=== PATIENT | female | born 1950 | race Caucasian/White ===

== ENCOUNTER → 2017-01-12 | Outpatient (CLI) | payer MEDICARE, BC ==
[~2017-01-12] MED LIST: ABILIFY; ASPIRIN 32325 MG/TAB PO; B-121000 MCG PO; CALCIUM CARBON650 M2 PO; CELEXA 20MG20 MG/TAB PO; CLOPIDOGREL PO; COLACE 100100 MG/CAP PO; CYMBALTA 60MG60 MG PO; GABAPENTIN300 M1 PO; K-DUR 2020 MEQ PO; KLONOPIN 0.5MG0.5 MG PO; LASIX 20MG TABL20 MG PO; LASIX 40MG TABL40 MG PO; LEXAPRO 10MG10 MG PO; LIPITOR 80MG80 MG PO; LISINOPRIL10 MG PO; MACRODANTIN PO; MACRODANTIN50 MG PO; MICRO-K 1010 MEQ PO; MYRBETR50MG PO; NEURONTIN300 MG/CAP PO; NICODERM C14 MG/PATC TOP; NITROQUICK0.4 MG SL; NORFLEX 10100 MG/TAB PO; NORVASC 10MG10 MG PO; PAMELOR 10MG10 MG PO; PLAVIX 75MG TAB75 MG PO; PRIL40 PO; PRILOSEC 20MG20 MG PO; PROTONIX 40MG T40 MG PO; SYNTHROID0.05 MG/TA PO; SYNTHROID0.075 MG/T PO; TYLENOL EXTRA500 M1 PO; VALIUM 5MG T5 MG/TAB PO; VITAMIN D32000 IU PO; VOLTAREN GEL 1%1 TU TP; XANAX 1MG1 MG PO; XANAX0.5 MG PO; ZOCOR80 MG PO
== END ==
LOC: MC.RAD 12:58
DX: Z12.31 Encounter for screening mammogram for malignant neoplasm of breast (principal)

== ENCOUNTER 2017-02-23 14:15 | Outpatient (RCR) | payer MEDICARE, BC ==
[~2017-02-23 14:15] MED LIST changes: -B-121000 MCG PO; -CALCIUM CARBON650 M2 PO; -KLONOPIN 0.5MG0.5 MG PO; -MYRBETR50MG PO; -NEURONTIN300 MG/CAP PO; -NORVASC 10MG10 MG PO; -PAMELOR 10MG10 MG PO; -PROTONIX 40MG T40 MG PO; -VITAMIN D32000 IU PO; -VOLTAREN GEL 1%1 TU TP
[2017-04-12] MEDS ORDERED: VOLTAREN GEL 1%1 TU TP (16:10)
[2017-04-12] MEDS ORDERED: PAMELOR 10MG10 MG PO (16:11)
[2017-04-12] MEDS ORDERED: B-121000 MCG PO (16:12)
[2017-04-12] MEDS ORDERED: PROTONIX 40MG T40 MG PO (16:12)
[2017-04-12] MEDS ORDERED: LASIX 40MG TABL40 MG PO (16:14)
[2017-04-12] MEDS ORDERED: NORVASC 10MG10 MG PO (16:15)
[2017-04-12] MEDS ORDERED: VITAMIN D32000 IU PO (16:17)
[2017-04-12] MEDS ORDERED: KLONOPIN 0.5MG0.5 MG PO (16:17)
[2017-04-12] MEDS ORDERED: CALCIUM CARBON650 M2 PO (16:18)
[2017-04-12] MEDS ORDERED: MYRBETR50MG PO (16:18)
[2017-04-12] MEDS ORDERED: CYMBALTA 60MG60 MG PO (16:19)
[2017-04-12] MEDS ORDERED: NEURONTIN300 MG/CAP PO (16:19)
== END 2017-02-28 13:03 | disposition home or self-care (01) ==
LOC: WSPT 14:15
DX: M47.892 Other spondylosis, cervical region (principal); M75.22 Bicipital tendinitis, left shoulder; M75.21 Bicipital tendinitis, right shoulder
CPT/HCPCS: G8981-GP; G8982-GP

== ENCOUNTER 2017-04-27 14:00 | Outpatient (RCR) | payer MEDICARE, BC ==
[2017-04-17 15:19] VITALS: BP 112/59; PULSE 59; TEMP 98.6
[2017-04-21 16:02] VITALS: BP 148/73; PULSE 65; TEMP 98.7
[~2017-04-27] VITALS: Ht 175.3 cm; Wt 113.6 kg
[~2017-04-27 14:00] MED LIST changes: +B-121000 MCG PO; +CALCIUM CARBON650 M2 PO; +KLONOPIN 0.5MG0.5 MG PO; +MYRBETR50MG PO; +NEURONTIN300 MG/CAP PO; +NORVASC 10MG10 MG PO; +PAMELOR 10MG10 MG PO; +PROTONIX 40MG T40 MG PO; +VITAMIN D32000 IU PO; +VOLTAREN GEL 1%1 TU TP
[2017-04-27 16:25] VITALS: BP 126/69; PULSE 66; TEMP 98.7
== END 2017-04-27 18:00 | disposition home or self-care (01) ==
LOC: EUO 14:00
DX: E61.1 Iron deficiency (principal); Z79.899 Other long term (current) drug therapy
CPT/HCPCS: J2916

== ENCOUNTER 2017-07-10 14:45 | Outpatient (RCR) | payer MEDICARE | END 2017-07-13 08:56 | LOC: WSPT 14:45 | DX: M79.604 Pain in right leg (principal); M25.551 Pain in right hip | CPT/HCPCS: G0283-GP; G8978-GP; G8979-GP; G8980-GP ==

== ENCOUNTER → 2017-07-20 | Outpatient (CLI) | payer MEDICARE, BC | LOC: COL.RAD 11:55 | DX: D32.0 Benign neoplasm of cerebral meninges (principal); H57.11 Ocular pain, right eye; R41.89 Other symptoms and signs involving cognitive functions and awareness; M47.812 Spondylosis without myelopathy or radiculopathy, cervical region; M48.02 Spinal stenosis, cervical region; M50.30 Other cervical disc degeneration, unspecified cervical region | CPT/HCPCS: A9585 ==

== ENCOUNTER → 2018-02-20 | Outpatient (CLI) | payer MEDICARE, BC | LOC: COL.VAS 08:55 | DX: I65.23 Occlusion and stenosis of bilateral carotid arteries (principal) ==

== ENCOUNTER → 2018-04-10 | Outpatient (CLI) | payer MEDICARE, BC | LOC: COL.RAD 08:18 | DX: I65.22 Occlusion and stenosis of left carotid artery (principal); I65.21 Occlusion and stenosis of right carotid artery; D32.0 Benign neoplasm of cerebral meninges | CPT/HCPCS: Q9967 ==

== ENCOUNTER → 2018-04-19 | Outpatient (CLI) | payer MEDICARE, BC ==
[~2018-04-19] VITALS: Ht 175.4 cm; Wt 117.3 kg
[~2018-04-19] MED LIST changes: +COZAAR 50MG50 MG/TAB PO; +IRON TABLETS325 MG PO; +K-DUR20 MEQ PO; +LAMICTAL 25MG T25 MG PO; +LEXAPRO20 MG PO; +TYLENOL 500MG500 MG PO; +ZANAFLEX 4MG TAB4 MG PO; +ZETIA 10MG TAB10 MG PO
[2018-04-19 06:12] VITALS: BP 154/72; PULSE 64
[2018-04-19 07:06] VITALS: BP 136/64; PULSE 54
[2018-04-19 07:08] VITALS: BP 157/71; PULSE 73
[2018-04-19 07:09] VITALS: BP 153/62; PULSE 71
[2018-04-19 07:10] VITALS: BP 154/75; PULSE 70
== END ==
LOC: COL.CARD 05:38
DX: I25.10 Atherosclerotic heart disease of native coronary artery without angina pectoris (principal); I10 Essential (primary) hypertension; E78.5 Hyperlipidemia, unspecified; F17.200 Nicotine dependence, unspecified, uncomplicated; K21.9 Gastro-esophageal reflux disease without esophagitis; I77.9 Disorder of arteries and arterioles, unspecified
CPT/HCPCS: A9502; J2785

== ENCOUNTER → 2018-07-11 | Outpatient (CLI) | payer MEDICARE, BC | LOC: COL.RAD 07-09 11:00 | DX: R13.10 Dysphagia, unspecified (principal) ==

== ENCOUNTER → 2018-07-31 | Outpatient (CLI) | payer MEDICARE, BC | LOC: COL.VAS 08:50 | DX: I65.22 Occlusion and stenosis of left carotid artery (principal); Z98.890 Other specified postprocedural states ==

== ENCOUNTER → 2018-11-01 | Outpatient (CLI) | payer MEDICARE, BC | LOC: COL.RAD 17:16 | DX: K57.30 Diverticulosis of large intestine without perforation or abscess without bleeding (principal); I70.0 Atherosclerosis of aorta; Z90.710 Acquired absence of both cervix and uterus | CPT/HCPCS: Q9967 ==

== ENCOUNTER → 2018-11-09 | Outpatient (CLI) | payer MEDICARE, BC | LOC: COL.RAD 06:48 | DX: R10.9 Unspecified abdominal pain (principal) | CPT/HCPCS: A9537; J2270 ==

== ENCOUNTER → 2019-01-14 | Outpatient (CLI) | payer MEDICARE, BC | LOC: MC.RAD 08:56 | DX: Z12.31 Encounter for screening mammogram for malignant neoplasm of breast (principal) ==

== ENCOUNTER → 2019-07-25 | Outpatient (CLI) | payer MEDICARE, BC ==
[~2019-07-25] MED LIST changes: +IRON 27 MG PO; +MASON NATURAL2000 IU; +NORCO 325 MG-51 TAB PO; +SYNTHROID0.1 MG/TAB PO
[2019-07-25 15:40] VITALS: BP 133/68; PULSE 96; TEMP 98.6
[2019-07-25 16:30] VITALS: BP 128/73; PULSE 83
[2019-07-25 16:45] VITALS: BP 123/74; PULSE 81
[2019-07-25 17:00] VITALS: BP 127/68; PULSE 85
[2019-07-25 17:15] VITALS: BP 124/81; PULSE 82
[2019-07-25 17:30] VITALS: BP 140/74; PULSE 82
== END ==
LOC: EUO 14:30
DX: D50.8 Other iron deficiency anemias (principal)
CPT/HCPCS: J2916

== ENCOUNTER 2019-12-27 13:00 | Outpatient (RCR) | payer MEDICARE | END 2020-01-23 | disposition home or self-care (01) | LOC: WSPT | DX: M51.36 Other intervertebral disc degeneration, lumbar region (principal) ==

== ENCOUNTER → 2020-03-20 | Outpatient (CLI) | payer MEDICARE, BC | LOC: MC.RAD 12:42 | DX: Z12.31 Encounter for screening mammogram for malignant neoplasm of breast (principal) ==

== ENCOUNTER 2020-04-13 11:00 | Outpatient (RCR) | payer MEDICARE, BC | END 2020-07-12 | disposition home or self-care (01) | LOC: WSPT | DX: R29.898 Other symptoms and signs involving the musculoskeletal system (principal); R53.1 Weakness ==

== ENCOUNTER → 2020-07-24 | Outpatient (CLI) | payer MEDICARE, BC ==
[2020-07-30 13:59] LABS: A/G RATIO (IEP) 1.03 (()); ALBUMIN (IEP) 3.4 g/dL (3.4-4.7); ALPHA 1 GLOBULINS (IEP) 0.2 g/dL (0.1-0.3); ALPHA 2 GLOBULINS (IEP) 0.9 g/dL (0.6-1.0); BETA GLOBULINS (IEP) 1.2 g/dL (0.7-1.2)
[2020-08-06 14:27] LABS: M SPIKE 1 (IEP) SEE PCI; M SPIKE 2 (IEP) SEE PCI; TOTAL PROTEIN (IEP) SEE PCI
== END ==
LOC: COL.LAB 12:17
DX: M79.7 Fibromyalgia (principal)

== ENCOUNTER → 2021-02-19 | Outpatient (CLI) | payer MEDICARE, BC ==
[2021-02-19 12:44] LABS: FASTING GLUCOSE 107 mg/dL (70-110)
[2021-02-19 13:43] LABS: 1/2 HR GLUCOSE 157 mg/dL (100-170)
[2021-02-19 14:55] LABS: 1 HR GLUCOSE 166 mg/dL (90-160)
== END ==
LOC: COL.LAB 11:19
DX: G62.9 Polyneuropathy, unspecified (principal)

== ENCOUNTER → 2021-03-23 | Outpatient (CLI) | payer MEDICARE, BC | LOC: COL.RAD 11:15 | DX: K41.90 Unilateral femoral hernia, without obstruction or gangrene, not specified as recurrent (principal); Z90.710 Acquired absence of both cervix and uterus | CPT/HCPCS: Q9967 ==

== ENCOUNTER → 2021-03-31 | Outpatient (CLI) | payer MEDICARE, BC | LOC: COL.RAD 03-25 13:30 | DX: Z12.2 Encounter for screening for malignant neoplasm of respiratory organs (principal); F17.218 Nicotine dependence, cigarettes, with other nicotine-induced disorders ==

== ENCOUNTER → 2021-04-19 | Outpatient (CLI) | payer MEDICARE, BC | LOC: MC.RAD 14:21 | DX: Z12.31 Encounter for screening mammogram for malignant neoplasm of breast (principal); N64.89 Other specified disorders of breast ==

== ENCOUNTER → 2021-04-22 | Outpatient (CLI) | payer MEDICARE, BC | LOC: MC.RAD 11:00 | DX: N64.89 Other specified disorders of breast (principal) ==

== ENCOUNTER 2021-07-21 12:55 | Outpatient (RCR) | payer MEDICARE, BC | END 2021-10-19 | disposition home or self-care (01) | LOC: WSST | DX: R13.12 Dysphagia, oropharyngeal phase (principal) ==

== ENCOUNTER 2021-07-21 16:00 | Outpatient (RCR) | payer MEDICARE, BC ==
[2021-07-13 15:43] VITALS: BP 137/81; PULSE 93; TEMP 98.8
[2021-07-15 16:26] VITALS: BP 138/83; PULSE 84; TEMP 98.7
[2021-07-19 16:17] VITALS: BP 130/89; PULSE 96; TEMP 99
[~2021-07-21] VITALS: Ht 175.3 cm; Wt 117.1 kg
[2021-07-21 16:00] VITALS: BP 144/65; PULSE 76; TEMP 98.1
== END 2021-07-21 16:53 | disposition home or self-care (01) ==
LOC: EUO 16:00
DX: D50.9 Iron deficiency anemia, unspecified (principal)
CPT/HCPCS: J1756

== ENCOUNTER → 2021-08-17 | Outpatient (CLI) | payer MEDICARE, BC | LOC: COL.RAD 13:28 | DX: R13.12 Dysphagia, oropharyngeal phase (principal) ==

== ENCOUNTER → 2022-01-31 | Outpatient (CLI) | payer MEDICARE, BC | LOC: MC.RAD 10:51 | DX: N64.59 Other signs and symptoms in breast (principal); R92.8 Other abnormal and inconclusive findings on diagnostic imaging of breast ==

== ENCOUNTER → 2022-04-13 | Outpatient (CLI) | payer MEDICARE, BC | LOC: COL.RAD 13:55 | DX: Z12.2 Encounter for screening for malignant neoplasm of respiratory organs (principal); F17.200 Nicotine dependence, unspecified, uncomplicated ==

== ENCOUNTER → 2022-05-05 | Outpatient (CLI) | payer MEDICARE, BC | LOC: MC.RAD 09:59 | DX: N64.89 Other specified disorders of breast (principal) ==

== ENCOUNTER → 2022-09-02 | Outpatient (CLI) | payer MEDICARE, BC | LOC: COL.RAD 16:18 | DX: M17.0 Bilateral primary osteoarthritis of knee (principal) ==

== ENCOUNTER → 2022-11-18 | Outpatient (CLI) | payer MEDICARE, BC ==
[~2022-11-18] MED LIST changes: +CALCIUM 600600 MG PO; -IRON 27 MG PO; +LYRICA 50MG CAP50 MG PO; +NATURAL IRON65 MG PO; +NEXIUM 40MG40 MG PO; +TOPAMAX 25MG25 M1 PO; +XALATAN EYE DROPS OU
== END ==
LOC: COL.RAD 12:00
DX: T18.9XXA Foreign body of alimentary tract, part unspecified, initial encounter (principal)

== ENCOUNTER → 2023-07-27 | Outpatient (CLI) | payer MEDICARE, BC ==
[~2023-07-27] MED LIST changes: +ATACAND32 MG PO; +CARDIZEM CD 12120 MG PO; +ELIQUIS 5MG PO; +LASIX 80MG TABL80 MG PO; +MASON NATURAL2000 IU PO; +REQUIP2 MG PO; +SYSTANE 0.4%-0.1 SOL OU; +TAMBOCOR 1100 MG/TAB PO
== END ==
LOC: CANPRECLI → COL.RAD 03-29 07:30
DX: Z12.2 Encounter for screening for malignant neoplasm of respiratory organs (principal); F17.218 Nicotine dependence, cigarettes, with other nicotine-induced disorders

== ENCOUNTER 2023-11-20 09:00 | Outpatient (RCR) | payer MEDICARE, BC | END 2023-11-28 15:24 | disposition home or self-care (01) | LOC: WSST 09:00 | DX: R48.8 Other symbolic dysfunctions (principal); R41.3 Other amnesia; R41.0 Disorientation, unspecified ==

== ENCOUNTER 2023-11-28 15:05 | Outpatient (RCR) | payer MEDICARE, BC | END 2023-12-21 | disposition home or self-care (01) | LOC: WSST | DX: R43.9 Unspecified disturbances of smell and taste (principal); R41.3 Other amnesia ==

== ENCOUNTER 2023-12-18 14:15 | Outpatient (RCR) | payer MEDICARE, BC | END 2023-12-21 | disposition home or self-care (01) | LOC: WSST | DX: R48.9 Unspecified symbolic dysfunctions (principal); R41.3 Other amnesia; R41.0 Disorientation, unspecified ==

== ENCOUNTER 2024-01-31 12:45 | Outpatient (RCR) | payer MEDICARE, BC | END 2024-02-20 | disposition home or self-care (01) | LOC: WSST | DX: R48.9 Unspecified symbolic dysfunctions (principal); R41.3 Other amnesia; R41.0 Disorientation, unspecified ==

== ENCOUNTER → 2024-05-24 | Outpatient (CLI) | payer MEDICARE, BC ==
[~2024-05-24] MED LIST changes: +Barium Sulfate 2% Oral Susp 450 ML X 2 BOTTLES PO SCH; +Iohexol 300 - 100 ML VIAL IV ONE; +NS 100 ML IV SCH
== END ==
LOC: COL.RAD 07:31
DX: I71.40 Abdominal aortic aneurysm, without rupture, unspecified (principal); I70.0 Atherosclerosis of aorta; K57.90 Diverticulosis of intestine, part unspecified, without perforation or abscess without bleeding; K42.9 Umbilical hernia without obstruction or gangrene
CPT/HCPCS: Q9967

== ENCOUNTER → 2024-05-30 | Outpatient (CLI) | payer MEDICARE, BC ==
[~2024-05-30] MED LIST changes: -Barium Sulfate 2% Oral Susp 450 ML X 2 BOTTLES PO SCH; -Iohexol 300 - 100 ML VIAL IV ONE; -NS 100 ML IV SCH
== END ==
LOC: MC.RAD 14:07
DX: Z12.31 Encounter for screening mammogram for malignant neoplasm of breast (principal)